=== PATIENT | female | born 1990 | race African-American/Black ===

== ENCOUNTER 2023-09-05 13:27 | Outpatient (CLI) | payer BC | END 2023-09-05 13:28 | disposition home or self-care (01) | LOC: SCSRAD 13:27 | PROVIDERS: ATTEND Nurse Practitioner Family | DX: S99.922A Unspecified injury of left foot, initial encounter (principal); S92.515A Nondisplaced fracture of proximal phalanx of left lesser toe(s), initial encounter for closed fracture ==